=== PATIENT | female | born 1995 | race Caucasian/White ===

== ENCOUNTER → 2019-10-19 09:36 | Outpatient (CLI) | payer OTHER, MEDICAID, SELFPAY ==
--- NOTE | 2019-10-19 | DI.US.S_ITS ---
PROCEDURE: US OB >= 14 WEEKS FETUS INDICATIONS: ANATOMY OUTSIDE/PRIOR DATING DATA: Last menstrual period (LMP): 06/04/19. LMP-based estimated date of delivery (MARIKA): 03/10/20. First dating scan (date and location): 10/19/19. Estimated date of delivery (MARIKA) from first dating scan: 03/20/20. TECHNIQUE: Real-time scanning was performed of the fetus, with image documentation and biometric measurements. Endovaginal scanning: Not performed COMPARISON: None. FINDINGS: General: A single living intrauterine gestation is present. Presentation: Breech Placenta: Placental position is posterior, without previa. Amniotic fluid index: 13.2 cm, normal range is 5-24 cm. heart rate: 145 beats per minute. Maternal cervical canal: 4.6 cm long. Normal lower limit is 2.5 cm. biometrics: Biparietal diameter: 4.0 cm, 18 weeks, one day Head circumference: 14.8 cm, 17 weeks, 6 days Abdominal circumference: 12.6 cm, 18 weeks, 2 days Femur length: 2.7 cm, 18 weeks, one day Estimated gestational age from initial scan: not applicable. Composite gestational age from present scan: 18 weeks, one day Estimated weight and percentile: 228 g, 2% Measurement variability for biometric dating: +/- 7 days from 14 weeks to 15 weeks 6 days gestation, +/- 10 days from 16 weeks to 21 weeks 6 days gestation, +/- 2 weeks from 22 weeks to 27 weeks 6 days gestation, +/- 3 weeks for 28 weeks gestation or later. weight reference: 4500 g or EFW >90/95% is considered macrosomia or large for gestational age. EFW <10% is small for gestational age. EFW 5% or less is considered intra-uterine growth restriction. Anatomic survey: Neuro: Ventricles are non-dilated at less than 10 mm. Cisterna magna is normal at 3-11 mm. Cerebellum is normal in size and morphology. Nuchal skin fold: Normal at less than 6 mm between 14-21 weeks gestational age. Face: Nose and lips, facial profile are normal. Spine: No evidence for spina bifida. Heart: 4-chambered heart and outflow tracts are not well seen. Diaphragm: Diaphragm is intact. Stomach: Left-sided stomach is present. Kidneys: No hydronephrosis. Normal is less than 5 mm in 2nd trimester, less than 7 mm in 3rd trimester. Cord: 3-vessel cord has orthotopic insertion. Bladder: Normal in size. Extremities: All 4 extremities identified. IMPRESSION: 1. Single live intrauterine . heart rate is 145 beats per minute. Estimated gestational age based on the current study is 18 weeks one day. 2. Normal amount of amniotic fluid. 3. Low lying posterior placenta 1.3 cm from internal os. 4. heart and outflow tracts are poorly visualized on the current study due to position. Rest of the anatomic survey is normal. Dictated by: Omi Graham M.D. on 10/19/2019 at 10:54 Approved by: Omi Graham M.D. on 10/19/2019 at 11:03
== END ==
PROVIDERS: Referring Provider Midwife; Visit Provider Midwife
DX: Z36.89 Encounter for other specified antenatal screening (principal); Z3A.18 18 weeks gestation of pregnancy
CPT/HCPCS: 76811

== ENCOUNTER → 2019-12-11 09:22 | Outpatient (CLI) | payer OTHER, MEDICAID, SELFPAY ==
--- NOTE | 2019-12-11 | DI.US.S_ITS ---
PROCEDURE: US OB FOLLOW UP INDICATIONS: FOLLOWUP GROWTH OUTSIDE/PRIOR DATING DATA: Last menstrual period (LMP): 06/04/19. LMP-based estimated date of delivery (MARIKA): 03/10/20. First dating scan (date and location): 10/19/19. Estimated date of delivery (MARIKA) from first dating scan: 03/20/20. TECHNIQUE: Real-time scanning was performed of the fetus, with image documentation and biometric measurements. COMPARISON: [facility], OB >= 14 WEEKS FETUS, 10/19/2019, 10:09. FINDINGS: General: A single live intrauterine gestation is present. Presentation: Cephalic. Placenta: Placental position is posterior, without previa. The inferior edge of the placenta is seen 6 cm from the internal cervical os. Amniotic fluid index: 14 cm, normal range is 5-24 cm. heart rate: 158 beats per minute. Maternal cervical canal: 4.6 cm long. Normal lower limit is 2.5 cm. biometrics: Biparietal diameter: 6.3 cm equals 25 weeks 3 days Head circumference: 2.6 cm equals 24 weeks 4 days Abdominal circumference: 19.8 cm equals 24 weeks 3 days Femur length: 4.6 cm equals 25 weeks 2 days Estimated gestational age from initial scan: 25 weeks 5 days Composite gestational age from present scan: 25 weeks 0 days Estimated weight and percentile: 142 g, 12 percentile Measurement variability for biometric dating: +/- 7 days from 14 weeks to 15 weeks 6 days gestation, +/- 10 days from 16 weeks to 21 weeks 6 days gestation, +/- 2 weeks from 22 weeks to 27 weeks 6 days gestation, +/- 3 weeks for 28 weeks gestation or later. weight reference: 4500 g or EFW >90/95% is considered macrosomia or large for gestational age. EFW <10% is small for gestational age. EFW 5% or less is considered intra-uterine growth restriction. Other: A 4 chambered heart is seen, with normal right upper tracts. IMPRESSION: A normal heart is seen, with four-chambers seen with normal appearing outflow tracts. The placenta is no longer seen to be low-lying. Normal interval growth when compared to the prior ultrasound examination. Dictated by: Mykel Kim M.D. on 12/11/2019 at 10:25 Approved by: Mykel Kim M.D. on 12/11/2019 at 10:27
== END ==
PROVIDERS: Referring Provider Midwife; Visit Provider Midwife
DX: Z36.2 Encounter for other antenatal screening follow-up (principal); Z3A.25 25 weeks gestation of pregnancy
CPT/HCPCS: 76816

== ENCOUNTER 2020-04-04 21:33 | Emergency (ER) | payer OTHER, MEDICAID, SELFPAY ==
[2020-04-04] VITALS (12 sets, daily range): BP systolic 121–136; BP diastolic 77–109; PULSE 56–68; RESP 18–42; TEMP 36.7; O2SAT 96–100
--- NOTE | 2020-04-04 22:25 | DI.RAD.S_ITS ---
PROCEDURE: XR CHEST 1V INDICATIONS: Chest pain TECHNIQUE: One view of the chest was acquired. COMPARISON: None. FINDINGS: Surgical changes and devices: None. Lungs and pleura: Lungs are clear. No pleural effusions or pneumothorax. Mediastinum: Mediastinal contours appear normal. Heart size is normal. Bones and chest wall: No suspicious bony lesions. Overlying soft tissues appear unremarkable. IMPRESSION: Portable chest within normal limits. Dictated by: Mykel Kim M.D. on 04/05/2020 at 10:12 Approved by: Mykel Kim M.D. on 04/05/2020 at 10:12
[2020-04-04 22:38] LABS: Add Manual Diff / Slide Review NO; Basophils Absolute Auto 0 /uL (0-100); Basophils Percent Auto 0.4 % (0-2); Eosinophils Absolute Auto 300 /uL (0-450); Eosinophils Percent Auto 4.3 % (2-4); Hematocrit 39.7 % (36-46); Hemoglobin 13.3 g/dL (12.0-16.0); Lymphocytes Absolute Auto 2900 /uL (1100-4500); Lymphocytes Percent Auto 41.2 % (25-40); Mean Corpuscular HGB Conc 33.6 % (30-36); Mean Corpuscular Hemoglobin 29.1 PG (26-34); Mean Corpuscular Volume 86.6 fL (80-100); Monocytes Absolute Auto 500 /uL (0-900); Monocytes Percent Auto 6.5 % (3-14); Neutrophils Absolute Auto 3300 /uL (1500-7000); Neutrophils Percent Auto 47.6 % (50-75); Platelet Count 262 X10^3/uL (150-400); Red Blood Cell Count 4.58 X10^6/uL (4.0-5.2); Red Cell Distribution Width 13.5 % (11.6-14.8); White Blood Cell Count 6.9 X10^3/uL (4.5-11.0)
[2020-04-04 22:47] LABS: Alanine Aminotransferase 28 IU/L (<35); Albumin 4.3 g/dL (3.5-5.0); Albumin Globulin Ratio 1.3 (1.0-2.8); Alkaline Phosphatase 110 U/L (38-126); Aspartate Aminotransferase 26 IU/L (14-36); BUN Creatinine Ratio 19.6 (6-22); Bilirubin Total 0.3 mg/dL (0.2-1.3); Blood Urea Nitrogen 18 mg/dL (7-17); Calcium 10.2 mg/dL (8.4-10.2); Carbon Dioxide 26 mmol/L (22-32); Chloride 104 mmol/L (98-107); Creatine Kinase 82 U/L (30-135); Estimated Glomerular Filt Rate > 60.0 mL/min (>60); Globulin 3.2 g/dL (1.7-4.1); Glucose 122 mg/dL (70-100); HEMOLYSIS < 15 (0-50); Lipase 100 U/L (23-300); Potassium 3.8 mmol/L (3.4-5.1); Sodium 139 mmol/L (137-145); Total Protein 7.5 g/dL (6.3-8.2)
[2020-04-04 22:55] LABS: D Dimer 554 ng/mL (<230)
[2020-04-04 22:59] LABS: Troponin I < 0.012 ng/mL (0.01-0.034)
--- NOTE | 2020-04-04 22:59 | ED_ITS ---
HPI - Chest Pain General Chief Complaint: Chest Pain Stated Complaint: BACK PAIN AND CHEST PAIN Time Seen by Provider: 04/04/20 22:24 Source: patient and family Mode of arrival: Family Vehicle History of Present Illness HPI narrative: Patient here with . 2 weeks. Delivered baby at [place]. Has been doing well. Three days ago had the same interscapular dull achy pain that radiated down to her pelvis and radiates to the chest and abdomen. Nothing makes it better or worse. Not positional. No nausea or vomiting. Short of breath because of the pain. No history of aortic aneurysm or dissection or pulmonary embolism. No calf pain. No numbness tingling or weakness. No sweating. No syncope. Related Data Allergies Allergy/AdvReac Type Severity Reaction Status Date / Time No Known Allergies Allergy Uncoded 10/19/17 12:39 Review of Systems Review of Systems Narrative: GENERAL: Denies chills, fatigue, malaise, fever, sweats. HEENT: Denies sinus pain, ear pain, sore throat, difficulty swallowing, dizziness. RESPIRATORY: Denies dyspnea, cough, wheezing, hemoptysis, sputum. CARDIOVASCULAR: Denies chest pain, palpitations, orthopnea, edema, GASTROINTESTINAL: Denies nausea, vomiting, complains abdominal pain, denies diarrhea, constipation, melena. : Denies dysuria, frequency, incontinence, hematuria, urinary retention. MUSCULOSKELETAL: denies weakness, joint pain, or bony pain complains of back pain SKIN: Denies rash, skin lesions NEUROLOGIC: Denies weakness, headache, numbness, change in speech, confusion, seizures, incoordination. PSYCHIATRIC: No concerning psychosocial issues. ROS Unobtainable: All systems reviewed & are unremarkable except as noted in HPI and below Patient History Social History Smoking Status: Never smoker Smoking Status: Never smoker Exam Narrative Exam Narrative: GENERAL: patient appears stated age. Well-nourished, well- developed patient, in mild distress, not toxic, not comfortable. HEAD: Atraumatic. Normocephalic. EYES: Pupils equal round and reactive. Extraocular motions intact. No scleral icterus. No injection or drainage. ENT: Nose without bleeding, purulent drainage. Throat without erythema, tonsillar hypertrophy or exudate. Airway patent. NECK: Trachea midline. Non tender CARDIOVASCULAR: Regular rate and rhythm without murmurs, gallops, or rubs. Strong bilateral carotid and radial pulses and posterior tibial pulses. RESPIRATORY: Clear to auscultation. Breath sounds equal bilaterally. No wheezes, rales, or rhonchi. GASTROINTESTINAL: Abdomen soft, mild diffuse tenderness. No peritoneal signs., nondistended. EXTREMITIES: No edema or joint tenderness. BACK: Nontender without deformity or crepitance. No flank tenderness. NEURO: AOx4. SKIN: No rash or erythema of visible areas, skin is dry PSYCH: Not anxious, is cooperative Initial Vital Signs Initial Vital Signs: Vital Signs Temperature 98.0 F 04/04/20 21:43 Pulse Rate 68 04/04/20 21:43 Respiratory Rate 20 04/04/20 21:43 Blood Pressure 125/81 04/04/20 21:43 Pulse Oximetry 100 04/04/20 21:43 Course Orders Ordered: ED Orders 04/04/20 22:15 Complete Blood Count AUTO DIFF Stat Comprehensive Metabolic Panel Stat D Dimer Stat Lipase Stat Troponin & CK Cardiac Panel Stat 04/04/20 22:25 XR chest 1V Stat EKG-12 Lead Stat Discontinued Medications Sodium Chloride (Normal Saline 0.9%) 1,000 mls @ 1,000 mls/hr IV BOLUS ONE Stop: 04/04/20 23:57 Last Infusion: 04/04/20 23:57 Dose: 0 mls/hr Documented by: Admin: 04/04/20 23:06 Dose: 1,000 mls/hr Documented by: JURGEN Morphine Sulfate (Morphine) 4 mg IV NOW ONE Stop: 04/04/20 22:59 Last Admin: 04/04/20 23:07 Dose: 4 mg Documented by: JURGEN Reevaluation(s) Reevaluation #1: Spoke with patient and , no CT scan ability here. Needs CT scan for further evaluation. Time: 23:07 Consultations Consultation #1: s/w [facility] dr pugh, attending emergency department...will accept pt Time: 23:24 Vital Signs Vital signs: Vital Signs - 8 hr 04/04/20 21:43 04/04/20 21:54 04/04/20 22:00 Temperature 98.0 F Pulse Rate 68 62 63 Respiratory Rate 20 27 H 20 Blood Pressure 125/81 Pulse Oximetry 100 99 04/04/20 22:20 04/04/20 22:22 04/04/20 22:24 Temperature Pulse Rate 61 58 L 56 L Respiratory Rate 30 H 34 H 35 H Blood Pressure 123/87 136/109 H 136/89 Pulse Oximetry 98 98 99 04/04/20 22:25 04/04/20 22:30 04/04/20 23:00 Temperature Pulse Rate 56 L 56 L 58 L Respiratory Rate 38 H 32 H 42 H Blood Pressure 128/90 Pulse Oximetry 99 97 98 04/04/20 23:11 04/04/20 23:30 04/04/20 23:59 Temperature Pulse Rate 59 L 56 L 59 L Respiratory Rate 31 H 19 18 Blood Pressure 121/77 121/80 121/80 Pulse Oximetry 97 96 98 MDM - Chest Pain Differential Diagnosis Differential diagnosis: Likely st elevation myocardial infarction, biliary colic and other (PE/dissection) Lab Data Attestation: I reviewed the patient's lab results. Result diagrams: 04/04/20 22:15 04/04/20 22:15 Labs: Lab Results 04/04/20 04/04/20 04/04/20 Range/Units 22:15 22:15 22:15 WBC 6.9 (4.5-11.0) X10^3/uL RBC 4.58 (4.0-5.2) X10^6/uL Hgb 13.3 (12.0-16.0) g/dL Hct 39.7 (36-46) % MCV 86.6 (80-100) fL MCH 29.1 (26-34) PG MCHC 33.6 (30-36) % RDW 13.5 (11.6-14.8) % Plt Count 262 (150-400) X10^3/uL Neut % (Auto) 47.6 L (50-75) % Lymph % (Auto) 41.2 H (25-40) % [place] % (Auto) 6.5 (3-14) % Eos % (Auto) 4.3 H (2-4) % Baso % (Auto) 0.4 (0-2) % Neut # (Auto) 3300 (1515-9395) /uL Lymph # (Auto) 2900 (1400-9520) /uL [place] # (Auto) 500 (0-900) /uL Eos # (Auto) 300 (0-450) /uL Baso # (Auto) 0 (0-100) /uL D-Dimer 554 H (<230) ng/mL Sodium 139 (137-145) mmol/L Potassium 3.8 (3.4-5.1) mmol/L Chloride 104 (98-107) mmol/L Carbon Dioxide 26 (22-32) mmol/L BUN 18 H (7-17) mg/dL Creatinine 0.92 (0.52-1.04) mg/dL Estimated GFR > 60.0 (>60) mL/min BUN/Creatinine Ratio 19.6 (6-22) Glucose 122 H (70-100) mg/dL Calcium 10.2 (8.4-10.2) mg/dL Total Bilirubin 0.3 (0.2-1.3) mg/dL AST 26 (14-36) IU/L ALT 28 (<35) IU/L Alkaline Phosphatase 110 (38-126) U/L Total Creatine Kinase 82 (30-135) U/L CK-MB (CK-2) TNP CK-MB (CK-2) Rel Index TNP Troponin I < 0.012 (0.01-0.034) ng/mL Total Protein 7.5 (6.3-8.2) g/dL Albumin 4.3 (3.5-5.0) g/dL Globulin 3.2 (1.7-4.1) g/dL Albumin/Globulin Ratio 1.3 (1.0-2.8) Lipase 100 (23-300) U/L Imaging Data Chest x-ray: Attestation: I personally reviewed and interpreted this imaging study as follows: My Impression: No acute process. No widened mediastinum ECG Data Attestation: I personally reviewed and interpreted this ECG as follows: Interpretation: Normal sinus rhythm, rate 65, no ST elevation or depression MDM Narrative Medical decision making narrative: I do have concern for pulmonary embolism versus dissection. I do not have CT scan ability tonight. The machine broke. I have spoken with [facility] and they will accept patient in their emergency department. At this time blood pressure is stable. No tachycardia. Bilateral arm pressures are equal. No widened mediastinum on chest x-ray. Discharge Plan Departure Patient Disposition: General Acute Hospital Clinical Impression: Atypical chest pain Discharge Date/Time: 04/05/20 00:01
[2020-04-04] MEDS: SODIUM CHLORIDE 0.9% 1,000 ML 1000 ML IV (23:06)
[2020-04-04] MEDS: MORPHINE 4 MG/ML INJ IV (23:07)
--- NOTE | 2020-04-04 23:35 | PC.NURSE ---
Pt much more comfrotable after mophine. Pt able to sit still without writhing in pain. Pt updated on plan of care. EMS ETA 30min.
== END 2020-04-05 00:01 | disposition short-term general hospital (02) ==
PROVIDERS: Emergency Provider Emergency Medicine
DX: R07.89 Other chest pain (principal)
CPT/HCPCS: 36415; 71045; 80053; 82550; 83690; 84484; 85025; 85379; 93005; 96361; 96374; 99284; J2270

== ENCOUNTER 2020-04-10 17:09 | Observation (INO) | payer OTHER, MEDICAID, SELFPAY ==
[2020-04-10] VITALS (11 sets, daily range): BP systolic 112–128; BP diastolic 59–82; PULSE 54–85; RESP 15–30; TEMP 36.2–36.5; O2SAT 97–100
--- NOTE | 2020-04-10 18:06 | ED_ITS ---
HPI - Chest Pain General Chief Complaint: Chest Pain Stated Complaint: PAIN, RIBS AND CHEST Time Seen by Provider: 04/10/20 18:00 Source: patient Mode of arrival: Ambulatory Limitations: no limitations History of Present Illness HPI narrative: 24-year-old female nonsmoker with noncontributory medical history presents with her and a chief complaint of a recurrent episode of sharp stabbing anterior chest pain with radiation to her back and portions of her abdomen. She delivered vaginally about 3 weeks ago and had a similar set of circumstances about 1 week ago and had a large evaluation which required t ransfer to another facility because we did not have access to a CT scan and was concerned about the possibility of PE. She was transferred to [facility] and discharge the same day with unspecified chest pain, but review of records demonstrates a negative CT angiogram with no evidence of dissection. She denies provocation or obvious palliation of her discomfort. She describes it is very intense, sharp and stabbing and largely in the absence of other symptoms such as dizziness, weakness, lightheadedness, shortness of breath, fever, nausea, vomiting or diarrhea. She had taken some Tylenol which made her pain go away prior to presentation. She is currently asymptomatic MD complaint: chest pain Onset (ago): hour(s) Duration: intermittent, improved and now resolved Onset: during rest Pain location: substernal Severity: moderate Quality: sharp Pain radiation: back Relieving factors: medication-other Exacerbating factors: nothing Treatments prior to arrival chest pain: other Related Data On Oral Contraceptives: No Home Medications Medication Instructions Recorded Confirmed Adult Probiotic 1 tab PO DAILY 04/11/20 04/11/20 Probiotic (with Vitamin D3) 1 tab PO DAILY 04/11/20 04/11/20 magnesium 1 packet PO DAILY 04/11/20 04/11/20 [id number] fum-[id number] 1 pkg PO DAILY 04/11/20 04/11/20 [Daily ] Allergies Allergy/AdvReac Type Severity Reaction Status Date / Time No Known Allergies Allergy Uncoded 10/19/17 12:39 Review of Systems Constitutional Constitutional: Denies chills, Denies fatigue, Denies fever(s), Denies frequent falls, Denies lethargy and Denies weakness Eyes Eyes: Denies change in vision, Denies eye discharge, Denies irritation and Denies loss of vision ENT Ears, Nose, Mouth, and Throat: Denies change in voice, Denies dizziness, Denies neck pain, Denies sore throat and Denies throat swelling Cardiovascular Cardiovascular: Reports chest pain, Denies irregular heart rhythm, Denies lightheadedness, Denies palpitations, Denies dyspnea, Denies dyspnea on exertion and Denies orthopnea Respiratory Respiratory: Denies cough, Denies dyspnea, Denies dyspnea on exertion and Denies wheezing Gastrointestinal Gastrointestinal: Denies abdominal pain, Denies change in bowel habits, Denies diarrhea, Denies nausea and Denies vomiting Musculoskeletal Musculoskeletal: Denies neck pain and Denies numbness Integumentary/Breasts Skin/Breast: Denies pruritus, Denies erythema, Denies rash and Denies wounds Neurologic Neurologic: Denies behavioral changes, Denies confusion, Denies dizziness, Denies frequent falls, Denies loss of vision, Denies numbness and Denies weakness Psychiatric Psychiatric: Denies anxiety, Denies behavioral changes, Denies confusion, Denies depression, Denies homicidal ideation and Denies suicidal ideation Endocrine Endocrine: Denies fatigue, Denies flushing and Denies palpitations Hematologic/Lymphatic Hematologic/Lymphatic: Denies easy bruising Allergic/Immunologic Allergic/Immunologic: Denies urticaria, Denies throat swelling and Denies wheezing Patient History Social History household members: spouse and family Smoking Status: Never smoker alcohol intake: never Smoking Status: Never smoker alcohol intake frequency: 0-2 drinks per day Substance Use Type: does not use Exam Narrative Exam Narrative: GENERAL: [24] year old patient appears stated age. Well- nourished, well-developed patient, in mild distress. HEAD: Atraumatic. Normocephalic. EYES: Pupils equal round and reactive. Extraocular motions intact. No scleral icterus. No injection or drainage. ENT: Nose without bleeding, purulent drainage. Throat without erythema, tonsillar hypertrophy or exudate. Airway patent. NECK: Trachea midline. Non tender CARDIOVASCULAR: Regular rate and rhythm without murmurs, gallops, or rubs. RESPIRATORY: Clear to auscultation. Breath sounds equal bilaterally. No wheezes, rales, or rhonchi. GASTROINTESTINAL: Abdomen soft, non-tender, nondistended. EXTREMITIES: No edema or joint tenderness. BACK: Nontender without deformity or crepitance. No flank tenderness. NEURO: AOx3. SKIN: No rash or erythema of visible areas Initial Vital Signs Initial Vital Signs: Vital Signs Pulse Rate 81 04/10/20 17:15 Respiratory Rate 15 04/10/20 17:15 Pulse Oximetry 100 04/10/20 17:15 Course Orders Ordered: ED Orders 04/10/20 17:16 Complete Blood Count AUTO DIFF Stat Comprehensive Metabolic Panel Stat Lipase Stat 04/10/20 18:41 US abdomen limited Stat 04/10/20 20:03 COVID19 -ED/INPAT/OR/L&D Stat Hydromorphone HCl (Dilaudid) 0.5 mg IV Q2H PRN PRN Reason: Pain, Severe (7-10) Last Admin: 04/10/20 22:07 Dose: 0.5 mg Documented by: TORREY Cefazolin Sodium/Dextrose (Ancef) 2 gm in 100 mls @ 200 mls/hr IV Q8H [facility] Last Infusion: 04/10/20 22:52 Dose: 0 mls/hr Documented by: Admin: 04/10/20 22:08 Dose: 200 mls/hr Documented by: TORREY Lactated Ringer's (Lactated Ringers) 1,000 mls @ 150 mls/hr IV CONT [facility] Last Admin: 04/10/20 22:08 Dose: 150 mls/hr Documented by: TORREY Ondansetron HCl (Zofran) 4 mg IV Q4HR PRN PRN Reason: Nausea And Vomiting Discontinued Medications Ondansetron HCl (Zofran) 4 mg IV NOW ONE Stop: 04/10/20 21:48 Last Admin: 04/10/20 22:50 Dose: Not Given Documented by: TORREY Consultations Consultation #1: discussed with Dr. Dillon. requests patient be kept NPO, swabbed for COVID, admitted on fluids, pain meds, antiemetics, Ancef 2g q8. Vital Signs Vital signs: Vital Signs - 8 hr 04/10/20 17:15 04/10/20 17:16 04/10/20 17:21 Temperature 97.1 F L Pulse Rate 81 85 79 Respiratory Rate 15 22 30 H Blood Pressure 115/71 115/71 Pulse Oximetry 100 100 100 04/10/20 17:30 04/10/20 18:00 04/10/20 18:30 Temperature Pulse Rate 62 65 Respiratory Rate 28 H 22 Blood Pressure 119/76 115/71 127/64 Pulse Oximetry 100 97 04/10/20 19:00 04/10/20 19:30 04/10/20 20:00 Temperature Pulse Rate 57 L 55 L 58 L Respiratory Rate 19 18 19 Blood Pressure 116/59 L 119/70 128/74 Pulse Oximetry 98 98 99 MDM - Chest Pain Lab Data Result diagrams: 04/10/20 17:16 04/10/20 17:16 Labs: Lab Results 04/10/20 04/10/20 04/10/20 Range/Units 17:16 17:16 20:03 WBC 7.5 (4.5-11.0) X10^3/uL RBC 4.57 (4.0-5.2) X10^6/uL Hgb 13.3 (12.0-16.0) g/dL Hct 39.7 (36-46) % MCV 86.9 (80-100) fL MCH 29.0 (26-34) PG MCHC 33.4 (30-36) % RDW 13.4 (11.6-14.8) % Plt Count 237 (150-400) X10^3/uL Neut % (Auto) 43.7 L (50-75) % Lymph % (Auto) 44.5 H (25-40) % [place] % (Auto) 5.8 (3-14) % Eos % (Auto) 5.1 H (2-4) % Baso % (Auto) 0.9 (0-2) % Neut # (Auto) 3300 (4278-5440) /uL Lymph # (Auto) 3300 (3571-2803) /uL [place] # (Auto) 400 (0-900) /uL Eos # (Auto) 400 (0-450) /uL Baso # (Auto) 100 (0-100) /uL Sodium 138 (137-145) mmol/L Potassium 3.9 (3.4-5.1) mmol/L Chloride 103 (98-107) mmol/L Carbon Dioxide 24 (22-32) mmol/L BUN 15 (7-17) mg/dL Creatinine 0.71 (0.52-1.04) mg/dL Estimated GFR > 60.0 (>60) mL/min BUN/Creatinine Ratio 21.1 (6-22) Glucose 107 H (70-100) mg/dL Calcium 9.6 (8.4-10.2) mg/dL Total Bilirubin 0.7 (0.2-1.3) mg/dL AST 78 H (14-36) IU/L ALT 39 H (<35) IU/L Alkaline Phosphatase 164 H (38-126) U/L Total Protein 8.4 H (6.3-8.2) g/dL Albumin 4.6 (3.5-5.0) g/dL Globulin 3.8 (1.7-4.1) g/dL Albumin/Globulin Ratio 1.2 (1.0-2.8) Lipase 130 (23-300) U/L COVID-19 PCR Negative (Negative) Imaging Data US - abdomen: Radiologist's Impression: gall stones, thickened GB wall, pericholecystic fluid, consistent with cholecystitis Discharge Plan Departure Patient Disposition: Admitted as Observation Clinical Impression: Acute cholecystitis Discharge Date/Time: 04/10/20 20:42 Admit Date/Time: 04/10/20 20:23 Admit Provider: Adrian Dillon
[2020-04-10 18:27] LABS: Add Manual Diff / Slide Review NO; Basophils Absolute Auto 100 /uL (0-100); Basophils Percent Auto 0.9 % (0-2); Eosinophils Absolute Auto 400 /uL (0-450); Eosinophils Percent Auto 5.1 % (2-4); Hematocrit 39.7 % (36-46); Hemoglobin 13.3 g/dL (12.0-16.0); Lymphocytes Absolute Auto 3300 /uL (1100-4500); Lymphocytes Percent Auto 44.5 % (25-40); Mean Corpuscular HGB Conc 33.4 % (30-36); Mean Corpuscular Volume 86.9 fL (80-100); Monocytes Absolute Auto 400 /uL (0-900); Monocytes Percent Auto 5.8 % (3-14); Neutrophils Absolute Auto 3300 /uL (1500-7000); Neutrophils Percent Auto 43.7 % (50-75); Platelet Count 237 X10^3/uL (150-400); Red Blood Cell Count 4.57 X10^6/uL (4.0-5.2); Red Cell Distribution Width 13.4 % (11.6-14.8); White Blood Cell Count 7.5 X10^3/uL (4.5-11.0)
[2020-04-10 18:33] LABS: Alanine Aminotransferase 39 IU/L (<35); Albumin 4.6 g/dL (3.5-5.0); Albumin Globulin Ratio 1.2 (1.0-2.8); Alkaline Phosphatase 164 U/L (38-126); Aspartate Aminotransferase 78 IU/L (14-36); BUN Creatinine Ratio 21.1 (6-22); Bilirubin Total 0.7 mg/dL (0.2-1.3); Blood Urea Nitrogen 15 mg/dL (7-17); Calcium 9.6 mg/dL (8.4-10.2); Carbon Dioxide 24 mmol/L (22-32); Chloride 103 mmol/L (98-107); Estimated Glomerular Filt Rate > 60.0 mL/min (>60); Globulin 3.8 g/dL (1.7-4.1); Glucose 107 mg/dL (70-100); Lipase 130 U/L (23-300); Potassium 3.9 mmol/L (3.4-5.1); Sodium 138 mmol/L (137-145); Total Protein 8.4 g/dL (6.3-8.2)
[2020-04-10 18:38] LABS: HEMOLYSIS 73 (0-50)
--- NOTE | 2020-04-10 18:41 | DI.US.S_ITS ---
PROCEDURE: US ABDOMEN LIMITED INDICATIONS: RIGHT UPPER QUADRANT PAIN, ELEVATED LIVER TESTS TECHNIQUE: Real-time focused scanning was performed of the abdomen, with image documentation. COMPARISON: None. FINDINGS: Multiple gallstones are noted. Gallbladder wall is thickened to 5.6 millimeters. Pericholecystic fluid noted. No sonographic Costello sign reported. Biliary tree is nondilated. Common bile duct measures 2.7 millimeters. Pancreas is sonographically normal. IMPRESSION: Cholelithiasis with gallbladder wall thickening and pericholecystic fluid suspicious for acute cholecystitis. Dictated by: So Castro MD, PhD on 04/10/2020 at 19:36 Approved by: So Castro MD, PhD on 04/10/2020 at 19:36
[2020-04-10 20:25] LABS: COVID19 -Nasal RAPID Negative (Negative)
[2020-04-10] MEDS: HYDROMORPHONE 0.5 MG INJ IV (22:07)
[2020-04-10] MEDS: CEFAZOLIN 2 GM/100 ML FROZ.PIGGY IV (22:08)
[2020-04-10] MEDS: LACTATED RINGERS 1,000 ML 150 ML IV (22:08)
--- NOTE | 2020-04-10 23:12 | PC.NURSE ---
admit/evening shift note- Patient arrived to room via wheelchiar from ER at 2049. Patient alert and oriented and and able to make needs known to staff. Admit questions done, medications reviewed, physical assessment and skin check completed. Oriented patient to bed and bed controls, room, bathroom ,lights, phone, and call muhammad/tv remote. IV fluids started and PRN pain medication given per patient request. Patient tolerated without issue with positve results reported. Safety measures in place. Call muhammad and phone within reach. will continue to monitor.
[2020-04-11] VITALS (17 sets, daily range): BP systolic 98–128; BP diastolic 47–79; PULSE 49–92; RESP 8–20; TEMP 35.8–37.1; O2SAT 96–99
--- NOTE | 2020-04-11 | PATH_ITS ---
[facility] Accession Number: [id number] . 01 Material submitted: . gallbladder - GALBLADDER . 01 Clinical history: . PAIN, RIBS AND CHEST . 02 Diagnosis: Gallbladder, Cholecystectomy: Chronic active cholecystitis with prominent eosinophilia. Cholelithiasis. Negative for granulomas, dysplasia, and malignancy. [facility] 04/15/2020 1636 Local . 02 Electronically signed: . Kailey Wise MD, Pathologist NPI- [id number] . 01 Gross description: . The specimen is received in formalin, labeled gallbladder, and consists of a 10.0 x 2.0 x 2.0 cm intact gallbladder with a 0.2 cm in diameter cystic duct. The serosa is dutton-pink to dutton-white and smooth. Opening reveals green viscous bile with multiple choleliths ranging from 0.1-0.2 cm and measuring 1.0 x 1.0 x 0.3 cm in aggregate. The mucosa is green and velvety. The wall thickness measures 0.2 cm. Sanitation Associate sections are submitted, to include the en face cystic margin (blue), body, and fundus in cassette A1. ([id number]) /[facility] 04/12/2020 1730 Local . 02 Microscopic: . A CMV immunohistochemical stain was performed to evaluate for the presence of CMV antigen and is negative. The control stain showed appropriate reactivity. . * This test was developed and its performance characteristics determined by [employer]. It has not been cleared or approved by the U.S. Food and Drug Administration. The FDA has determined that such clearance or approval is not necessary. This test is used for clinical purposes. It should not be regarded as investigational or for research. . 02 Pathologist provided ICD-10: K80.60 . 02 CPT . 951665, [id number] Performed at: 01 [facility] [address] [place] [address], [place], [place] [id number] MD Derik Cool MD Phone: [phone] Performed at: 02 [facility] [address] [address] [place], [place] [id number] MD Kailey Wise MD Phone: [phone]
[2020-04-11] MEDS: HYDROMORPHONE 0.5 MG INJ IV ×3 (03:20→22:29)
[2020-04-11] MEDS: LACTATED RINGERS 1,000 ML 150 ML IV (05:07)
[2020-04-11] MEDS: CEFAZOLIN 2 GM/100 ML FROZ.PIGGY IV (05:08)
--- NOTE | 2020-04-11 05:55 | PC.NURSE ---
varitype operator note: Patient slept well throughout the shift. Patient remains independent in room, ambulating to restroom with assistance of who has stayed at bedside with patient. Patient reporting pain at 0320, in which she was medicated with PRN Dilaudid. Patient s/p delivery of baby 3 weeks ago and is currently /pumping. Patient stated she was dumping my milk because of all the medications i've gotten. Patient with VSS throughout the shift and remains on RA. IV fluids continuing to run. Patient currently resting in bed, no distress noted.
--- NOTE | 2020-04-11 08:44 | PM.HP.1 ---
History of Present Illness History of Present Illness Date Patient Seen: 04/11/20 Time Patient Seen: 08:44 Date of Onset of Symptoms: 03/28/20 Chief complaint: PAIN, RIBS AND CHEST Narrative: The patient is a young woman who is 3 weeks from a normal vaginal delivery. About a week after her delivery she started having vague pains in her chest epigastrium radiating into her shoulders and back. The pain was often accompanied by nausea. It did not seem to be associated with particular food intake and she usually associated it with certain positions. She never vomited. Last night the pain was quite intense and she was having some perception of breathing issues and decided to come to the emergency room. She has never had jaundice. She is breast feeding. Patient History Family & Social History Family History (Updated 04/11/20 @ 08:50 by Adrian Dillon MD) Mother Cancer Social History: household members spouse,family Prior Living Arrangements House Safety & Behavioral: Feels Safe in Current Yes Environment Been Physically Hurt or No Threatened By a Person Suicidal Ideation Description None Suicide Plan Description No Plan Tobacco & Substance use: Smoking Status Never smoker alcohol intake never alcohol intake frequency 0-2 drinks per day Substance Use Type does not use Meds Home Medications and Allergies Home Medications Medication Instructions Recorded Confirmed Type Adult Probiotic 1 tab PO DAILY 04/11/20 04/11/20 History Probiotic (with Vitamin D3) 1 tab PO DAILY 04/11/20 04/11/20 History magnesium 1 packet PO DAILY 04/11/20 04/11/20 History [id number] fum-folic [id number] 1 pkg PO DAILY 04/11/20 04/11/20 History [Daily ] Allergies Allergy/AdvReac Type Severity Reaction Status Date / Time No Known Allergies Allergy Uncoded 10/19/17 12:39 Review of Systems Review of Systems Narrative: Patient wears glasses. Denies double vision pain arise earache sore throats. No trouble swallowing. No cough cold or asthma. No tooth aches. No heart problems murmurs irregularity. She had panic attacks as a teenager but no longer is bothered by that. She never took medicine for. Patient denies black or bloody bowel movements. No seizures or blackouts. No anxiety or depression treated with medication. No problems with her thyroid pancreas she is aware of. No unusual bruising or bleeding. She is still having a little vaginal bleeding . Has not begun menstrual cycles. Exam Vital Signs (past 8 hours): - 04/11/20 05:05 04/11/20 08:00 Temperature 96.5 F L 97.9 F Pulse Rate 68 60 Respiratory Rate 20 14 Blood Pressure 120/73 104/56 L Pulse Oximetry 96 99 Oxygen Delivery Method Room Air Oxygen Flow Rate 0 Narrative Exam Narrative: Cooperative pleasant woman in no apparent distress. Vital signs noted. Her eyes are nonicteric. Pupils equal round reactive to light. Oral mucosa pink moist without open lesions teeth are intact. Neck is supple there are no nodes in the neck supraclavicular areas. Trachea is midline mobile. Thyroid is not enlarged. There are no masses in the neck or thyroid. Lungs are clear to auscultation without rales or rhonchi. Equal percussion heart regular rate and rhythm with rare ectopy. Some minor respiratory variation. No bruit in the neck. Her abdomen is scaphoid soft. She has a piercing above her navel and a hernia at her umbilicus. No skin lesions are appreciated. Extremities without cyanosis edema or bony deformity. 2+ pulses at the feet. Legs are hairless from shaving. Patient is alert and oriented x3. Speech rate and content are appropriate. Affect is appropriate. Objective Imaging US - abdomen: My impression: Thickening with gallbladder wall. Gallstones. Radiologist's impression: See report. Agrees with mine. Labs Result Diagrams: 04/10/20 17:16 04/10/20 17:16 Labs: Laboratory Results - last 24 hr 04/10/20 04/10/20 04/10/20 17:16 17:16 20:03 WBC 7.5 RBC 4.57 Hgb 13.3 Hct 39.7 MCV 86.9 MCH 29.0 MCHC 33.4 RDW 13.4 Plt Count 237 Neut % (Auto) 43.7 L Lymph % (Auto) 44.5 H Lucas % (Auto) 5.8 Eos % (Auto) 5.1 H Baso % (Auto) 0.9 Neut # (Auto) 3300 Lymph # (Auto) 3300 Lucas # (Auto) 400 Eos # (Auto) 400 Baso # (Auto) 100 Sodium 138 Potassium 3.9 Chloride 103 Carbon Dioxide 24 BUN 15 Creatinine 0.71 Estimated GFR > 60.0 BUN/Creatinine Ratio 21.1 Glucose 107 H Calcium 9.6 Total Bilirubin 0.7 AST 78 H ALT 39 H Alkaline Phosphatase 164 H Total Protein 8.4 H Albumin 4.6 Globulin 3.8 Albumin/Globulin Ratio 1.2 Lipase 130 COVID-19 PCR Negative Assessment & Plan Assessment & Plan narrative: Patient is a woman with upper abdominal pain radiating to her shoulders and back with an ultrasound showing thickening of the gallbladder wall and gallstones. No ductal dilatation and a bilirubin that is normal. She has elevation of her alk-phos and liver function tests. This elevation is [id number]-[id number]. I believe her pain is probably related to her gallbladder disease. I have discussed laparoscopic cholecystectomy with her with a possible injection of dye either green dye or through the ductal system. She understands that either I or Dr. Hurt will probably be the doctors performing the procedure. I discussed the risks of bleeding infection hernia injury to internal organs or ducts which would require major operation to repair, possibility of bile leakage and possible postoperative problems with food intolerance diarrhea and intolerance of fat. She appears to understand. I also talked about her restrictions in activity postop. All questions were answered and she wishes to proceed. Quality VTE Deep Vein Thrombosis/Pulmonary Embolism Present on Admission: No
--- NOTE | 2020-04-11 13:18 | PC.NURSE ---
INDEP IN RM, DENIES PAIN, N/V. TENDER EPIGASTRIC W/ PALPATION. TAKEN TO OR AT 1315 W/ CONSENT SIGNED AND SPOUSE WITH HER.
--- NOTE | 2020-04-11 13:32 | CM.DANOTE ---
Discharge Planning/Care Management DCP: assessment: case received, EMR reviewed. Discussed in Team Rounds. Pt is a 24 year old female who admitted to care of [facility]: Dr. Easley last night and with dx of acute cholecystitis. She was taken to the OR this afternoon. Payer: [facility]/Medicaid Admission status: OBS: per BHAVESH More. Pt's spouse has been at bedside. P: will follow prn for any d/c needs that may arise. Anticipate home with spouse/family when stable for same. CM Discharge Assessment Start: 04/11/20 13:30 Freq: Status: Active Protocol: Document 04/11/20 13:30 ITV (Rec: 04/11/20 13:32 ITV [id number]) Discharge Planning Assessment Advance Directives? No Advance Directives on File No History Provided By Medical Record Prior Living Arrangements House Household Members spouse,family Comment delivered baby 3 weeks ago. Independent with ADL's Yes Is patient alert and oriented? Yes Review Status In Process
[2020-04-11] MEDS: LACTATED RINGERS 1,000 ML 42 ML IV ×2 (13:33→15:33)
--- NOTE | 2020-04-11 13:55 | PM.PREOP ---
Pre-operative Note COVID-19 COVID-19 status: Negative Result date/Date tested (Pos, Neg/Pending): 04/10/20 Interval Note History & Physical reviewed/Exam performed by Physician: Yes Changes to H&P: No
[2020-04-11] MEDS: Non-Formulary Medication (Indocyanine 25 MG) 25 EACH IV (13:56)
[2020-04-11] MEDS: PIPERACILLIN-TAZO 3.375 GM/50 ML FROZ.PIGGY IV (14:09)
[2020-04-11] MEDS: ACETAMINOPHEN IV 1,000 MG/100 ML VIAL 400 MG IV (14:15)
--- NOTE | 2020-04-11 14:31 | SUR.OPER ---
Supine on padded OR bed, head on pillow, arms secured on padded arm boards at <90 degrees abduction, legs uncrossed, safety belt at thigh, tape over blanket over lower legs.
[2020-04-11] MEDS: BUPIVACAINE 0.25% W/ EPI 30 ML VIAL INJ ×2 (14:54→15:56)
--- NOTE | 2020-04-11 15:54 | P.OP_ITS ---
Operative Date/Time/Diagnoses Date of procedure: 04/11/20 Time of procedure: 15:54 Pre-op diagnosis: acute cholecystitis with cholelithiasis Post-op diagnosis: same Procedure & Clinicians Procedure: Laparoscopic cholecystectomy with indocyanine green cholangiography Same procedure as scheduled: Yes Indications: Acute cholecystitis with cholelithiasis Surgeon: Letty Hurt Click Yes if Unassisted: Yes Anesthesia Type: General Operative Notes Findings: Thickened gallbladder with acute and chronic adhesions, good critical view of safety with confirmation on indocyanine green cholangiography Specimen(s): other (Gallbladder and contents) Estimated Blood Loss (mL): 1 Procedure in detail: The patient was brought into the operating room and placed supine on the OR table. Sequential compression devices were placed on both legs and turned on. Appropriate perioperative antibiotics were given prior to the start of surgery. General anesthesia was induced the patient was intubated. The abdomen was prepped and draped in sterile fashion. Surgical time-out was conducted. Local anesthetic was injected under the skin just inferior to the umbilicus and a 5 mm vertical incision was made at this site. The umbilical stalk was grasped with a Rashard and elevated. A Veress needle was passed through the fascia into proper position. The position was tested with a saline drop test which was appropriate for intra-abdominal Veress needle placement. The abdomen was then insufflated in the usual fashion. Once insufflated to 15 mm Hg the Veress needle was removed and a 5 mm optical trocar was placed under direct vision using a 5 mm 30 degree scope. Once the camera was inside the abdomen I took a look around. There was no injury from port placement. Two additional ports were placed in a similar fashion in the right upper quadrant and a 10 mm port was placed in the epigastrium. Through the 2 lateral ports the gallbladder was grasped and elevated and the infundibulum was retracted laterally to the patient's right. This exposed the gallbladder hilum and allowed for dissection of the cystic duct and cystic artery. There was quite a bit of dense scar tissue throughout the gallbladder hilum. This required tedious careful dissection to avoid injury to the bile ducts. The cystic duct was kinked and scar down onto the common duct. Using indocyanine cholangiography were able to see the 2 ducts, and carefully dissect the scar tissue away from the cystic duct in order to straighten it out and free it from its adhesion to the common duct. Once the cystic duct and artery were completely dissected out and I was able to see liver behind and between both structures without any other structures in the way, giving us the critical view of safety. We reimaged again with indocyanine cholangiography and confirmed that this was the cystic duct, and we saw the common duct in its proper position below and away from it. At this point I doubly clipped both structures on the patient's side and put a single clip on the gallbladder side of both the cystic duct and artery. Both structures were then divided with laparoscopic Emile. Following this the gallbladder was gradually dissected free from the liver. There was quite a bit of dense scar tissue between the gallbladder and the gretchen er. Several small vessels had to be controlled with cautery. Once the gallbladder was entirely freed, it was placed inside an Endo-Catch bag and removed through the epigastric port site. I [did] have to enlarge the epigastric site in order to get the gallbladder out. Once it was out and passed off to the back table I then took another look inside the abdomen. I suctioned clean any remaining blood or fluid on the lateral side of the liver and in the subhepatic space. I cauterized a few active bleeders on the gallbladder fossa, with good hemostasis. At this point, there was no active bleeding or leaking of bile from the gallbladder fossa or from the clipped stumps of the cystic duct and artery. At this point the insufflation was removed from the abdomen and the epigastric port site was closed with 0 Vicryl suture in the fascia, 3 O Vicryl in the subcutaneous layers, and 4 Monocryl in the skin. The remaining port sites were closed with 4 Monocryl in the skin. Each port site was sealed with Dermabond. Local anesthetic was given at each of the port sites and in the fascia. This concluded the procedure. At this point the needle sponge and instrument counts were correct. The gallbladder was passed off the table for pathology. Patient was awakened from anesthesia and extubated. She was transferred to the postanesthesia care unit in stable condition. Complications: none Post-operative Condition: stable Disposition: PACU
[2020-04-11] MEDS: ONDANSETRON 4 MG/2 ML INJ IV (16:02)
[2020-04-11] MEDS: fentaNYL 100 MCG/2 ML INJ IV ×3 (16:07→16:26)
--- NOTE | 2020-04-11 16:18 | SUR.PHASEI ---
Nausea improved per patient.
--- NOTE | 2020-04-11 16:43 | SUR.PHASEI ---
patient reported rt/mid chest discomfort, VS stable. Patient repositioned, sensation almost completely resolved.
--- NOTE | 2020-04-11 16:49 | SUR.PHASEI ---
report called to Mirna
--- NOTE | 2020-04-11 17:05 | SUR.PHASEI ---
Patient transferred to the floor. Report given to Mirna. VS stable. IV saline locked. ABD sites CDI. Spouse present.
[2020-04-11] MEDS: OXYCODONE IR 5 MG TABLET PO (17:23)
[2020-04-12] MEDS: OXYCODONE IR 5 MG TABLET PO ×2 (00:40→08:34)
--- NOTE | 2020-04-12 05:43 | PC.NURSE ---
retail shift supervisor note: Patient slept well throughout the shift. Patient medicated with PRN Oxycodone x1. Patient with lap sites x4, which have incisional glue to them. They remain clean/dry with small amount of bruising to insertion sites. Patient independent in room, voiding and eating/drinking well. Patient and remains pumping and dumping milk at bedside. Currently resting in no distress.
[2020-04-12 06:58] VITALS: BP 114/69; RESP 18; TEMP 36.6
[2020-04-12 07:20] VITALS: BP 111/68; PULSE 49; RESP 16; TEMP 36.4; O2SAT 97
[2020-04-12] MEDS: DOCUSATE 100 MG CAPSULE PO (08:33)
[2020-04-12] MEDS: ENOXAPARIN 40 MG/0.4 ML SYRINGE SUBCUT (08:33)
--- NOTE | 2020-04-12 10:43 | PC.NURSE ---
Patient given oxycodone for complaints of pain to mid abdomen. She has 4 small lap sites that are glued together, no drainage noted. She is up with her and ambulating in the halls. Patient has active bowel tones x4 and she will be discharging today around noon.
--- NOTE | 2020-04-12 12:09 | CM.DPC ---
DCP: continued: today is post op day one: laproscopic cholecystectomy. Dr. Garrett was here and has ok'd her for d/c today. She has been up mobilizing in the halls with her and will d/c after lunch.
--- NOTE | 2020-04-12 12:20 | P.DS_ITS ---
History of Present Illness History of Present Illness Date Patient Seen: 04/12/20 Time Patient Seen: 12:21 Chief complaint: PAIN, RIBS AND CHEST Narrative: 24-year-old female admitted for acute cholecystitis. Discharge Providers Provider Date of admission: 04/10/20 20:23 Discharge Date: 04/12/20 Discharge provider: Joey Garrett MD Summary Hospital Course Discharge Diagnosis: Acute cholecystitis Hospital Course: Underwent laparoscopic cholecystectomy 04/11/2020. Operation demonstrate acute cholecystitis was otherwise unremarkable. On postoperative day 1 she is feeling well without acute issue and is stable for discharge home Exam Vital Signs (past 8 hours): - 04/12/20 06:58 04/12/20 07:20 Temperature 97.8 F 97.5 F L Pulse Rate 49 L Respiratory Rate 18 16 Blood Pressure 114/69 111/68 Pulse Oximetry 97 Oxygen Delivery Method Room Air Oxygen Flow Rate 0 Narrative Exam Narrative: General adult female alert oriented no acute distress Abdomen soft appropriately tender to palpation incisions clean dry intact. Objective Labs Result Diagrams: 04/10/20 17:16 04/10/20 17:16 Discharge Plan Discharge Plan Patient Disposition: Home Discharge comment: You will be prescribed a narcotic pain medication. You may also use ibuprofen or Aleve as well as Tylenol/ Acetaminophen for pain after surgery. Make sure you do not take more than 3000 mg of Acetaminophen per day for many source. There may be Acetaminophen in cold medications or headache remedies. Using an NSAID such as ibuprofen or Aleve will help with inflammation. Do not take more than recommended. You may take it along with or instead of your prescribed pain medication. If you are unable to urinate within 8 hours after surgery you need to come to the ER for a urine catheter to be placed. Make sure to take the stool softener to prevent constipation from the narcotic pain medication. If you are not able have a bowel movement 24 hours after surgery, or you feel constipated please take an additional laxative such as MiraLax or Senna. Avoid any straining on the toilet. Avoid heavy lifting, pulling, or pushing more than 10 lbs or doing other activities that strain the abdomen or increase the abdominal pressure such as sit-ups, core work outs, and attempt to prevent frequent coughing. If you have fevers, jaundice, intractable nausea/vomiting, or intractable pain please call the doctor's office or if symptoms are severe come into the ER. If you call after hours please choose the option to contact the surgeon sewing techniques demonstrator rather than leaving a message. Discharge orders & Medications Prescriptions: New oxycodone 5 mg tablet 5 mg PO Q6H PRN (Reason: pain) Qty: 30 RF: 0 Continued Daily [phone] mg-mcg-mg Combo Pack 1 pkg PO DAILY RF: 0 magnesium 1 packet PO DAILY RF: 0 Probiotic (with Vitamin D3) tablet 1 tab PO DAILY RF: 0 Adult Probiotic 1 tab PO DAILY RF: 0 Follow up/Referrals: Letty Hurt MD [Physician] - (Please call [facility] on Tuesday make a follow-up appointment to see Dr. Hurt in the next 2 weeks) Diet/Activity/Treatments Diet: Diet as Tolerated Skin/Wound/Dressing Care Report to your healthcare provider any signs of infection, such as:: chills, fever, night sweats, increased pain, unusual drainage and unusual redness Visit Report/Discharge Packet Instructions: DI for Laparoscopy, DI for Laparoscopic Cholecystectomy, [facility]: Wound Care Stand Alone Forms: Surgery Discharge Visit Report Forms: Patient Portal/API, Stroke Signs & Symptoms Discharge Data Attending Provider: Adrian Dillon Admit Date/Time: 04/10/20 20:23 Quality VTE Deep Vein Thrombosis/Pulmonary Embolism Present on Admission: No
== END 2020-04-12 12:26 | disposition home or self-care (01) ==
LOC: ED 20:13 → AC 04-11 09:05
PROVIDERS: Surgery; Admitting Provider Specialist; Emergency Provider Emergency Medicine; Referring Provider Emergency Medicine; Visit Provider Specialist
PROC: 0FT44ZZ Resection of Gallbladder, Percutaneous Endoscopic Approach (ICD-10-PCS; CPT 47562; principal; 2020-04-11 13:45)
DX: K80.00 Calculus of gallbladder with acute cholecystitis without obstruction (principal); K82.8 Other specified diseases of gallbladder; Z11.59 Encounter for screening for other viral diseases
CPT/HCPCS: 47563; 76705; 80053; 83690; 85025; 87635; 93005; 96361; 96372; 96374; 96375; 99219; 99283; 99284; G0378; J0131; J0690; J1100; J1170; J1650; J2250; J2405; J2543; J2704; J3010